=== PATIENT | male | born 1990 | race Caucasian/White ===

== ENCOUNTER 2016-12-13 12:53 | Emergency (ER) | payer MEDICAID, SELFPAY ==
[~2016-12-13] VITALS: Ht 175.3 cm; Wt 101.5 kg
[2016-12-13] MEDS ORDERED: GI COCKTAIL 50ML BTL(HYOSCYAMINE/MAALOX/LIDOCAINE VISCOUS)(1:3:1) PO ONE (13:45)
[2016-12-13] MEDS ORDERED: ASPIRIN 81 MG CHEW TABLET PO ONE (13:45)
[2016-12-13 14:12] LABS: BASO % 0.6 % (0.0-1.0); EOS # 0.7 K/mm3 (0.0-0.50); EOS % 8.1 % (0.0-3.0); LARGE UNSTAINED CELL # 0.1 K/mm3 (0.0-0.4); LARGE UNSTAINED CELL % 1.5 % (0.0-4.0); LYMPH # 1.6 K/mm3 (1.5-6.5); LYMPH % 17.5 % (24.0-44.0); MEAN CORPUSCULAR HEMOGLOBIN 30.2 pg (27.0-33.0); MEAN CORPUSCULAR HGB CONC 33.9 g/dl (32.0-36.5); MEAN CORPUSCULAR VOLUME 88.9 fl (80.0-96.0); MONO # 0.5 K/mm3 (0.0-0.8); MONO % 6.3 % (0.0-5.0); NEUTROPHILS # 5.4 K/mm3 (1.8-7.7); PLATELET COUNT, AUTOMATED 293 k/mm3 (150-450); RED CELL DISTRIBUTION WIDTH 12.2 % (11.5-14.5); WHITE BLOOD COUNT 8.2 K/mm3 (4.0-10.0)
[2016-12-13 14:37] LABS: ANION GAP 8 MEQ/L (8-16); BLOOD UREA NITROGEN 9 MG/DL (7-18); CARBON DIOXIDE LEVEL 26 MEQ/L (21-32); CHLORIDE LEVEL 105 MEQ/L (98-107); CREATININE FOR GFR 0.94 MG/DL (0.70-1.30); GLOMERULAR FILTRATION RATE > 60.0 (>60); GLUCOSE, FASTING 98 MG/DL (70-105); POTASSIUM SERUM 3.8 MEQ/L (3.5-5.1); SODIUM LEVEL 139 MEQ/L (136-145)
--- NOTE | 2016-12-13 14:53 | ECGEPIP ---
Stationary ECG Study [facility] - ED Test Date: 2016-12-13 Pat Name: SUNITHA MARK Department: Room: - Gender: M [employer]ist: skylar : 1990 Requested By: Lisbeth Oneill Order Number: [id number] Reading MD: Armando Eisenberg Measurements Intervals Reading Rate: 79 P: 9 DC: 136 QRS: 63 QRSD: 91 T: 18 QT: 368 QTc: 423 Interpretive Statements SINUS RHYTHM POSSIBLE LEFT ATRIAL ENLARGEMENT INC. RBBB NO PRIORS Electronically Signed On 12-13-2016 14:53:43 EDT by Armando Eisenberg
[2016-12-13] MEDS ORDERED: ISOVUE-370 76% 100ML VIAL (Q9967) As Ordered ONE (15:19)
--- NOTE | 2016-12-13 15:33 | REP ---
Clinical: Chest pain. Technique: PA and lateral. Findings: Right perihilar mass-like density requires further investigation. No effusion. No pneumothorax. Skeletal structures intact. Impression: Large right perihilar opacity. Signed by Sarthak Hong MD 12/13/2016 03:25 P
--- NOTE | 2016-12-13 15:52 | REP ---
Clinical: Chest mass. Technique: Axial contrast enhanced images from the thoracic inlet to the upper abdomen using 100 ml Isovue 370 intravenous contrast material with coronal and sagittal re-formations. Findings: There is anterior mediastinal mass extending to the right paramediastinal region measures 12.2 x 11.7 9.7 cm. There is no evidence for hilar or mediastinal adenopathy. Findings most suggestive of a thymic mass. Mild passive atelectasis involving the adjacent right upper lobe and right middle lobe noted. Remainder of lung [place] are clear. No focal consolidation, nodule or mass lesion. No pleural effusion/reaction. Tracheobronchial tree is patent. The heart and pericardium are relatively normal. Surrounding musculoskeletal structures are intact. Impression: Large mass in the right paramediastinal region appears to extend from the anterior mediastinum. Differential diagnosis includes thymic mass and less likely lymphoma and large bronchogenic cyst. Signed by Sarthak Hong MD 12/13/2016 03:44 P
[2016-12-13 16:01] VITALS: BP 134/77
[2017-02-06] MEDS ORDERED: ONDA8TAB7 PO (16:01)
[2017-02-06] MEDS ORDERED: PROC10TA PO (16:01)
== END 2016-12-13 16:02 | disposition home or self-care (01) ==
LOC: M ED 12:53
DX: R22.2 Localized swelling, mass and lump, trunk (principal)
CPT/HCPCS: 36415; 71020; 71260; 80048; 82550; 82553; 83880; 85025; 93005; 99284; Q9967

== ENCOUNTER → 2016-12-15 | Outpatient (CLI) | payer SELFPAY ==
[~2016-12-15] MED LIST: ONDA8TAB7 PO; PROC10TA PO
== END ==
LOC: M SMT 08:00
PROVIDERS: ATTEND Thoracic Surgery (Cardiothoracic Vascular Surgery)
DX: Z01.812 Encounter for preprocedural laboratory examination (principal); R22.2 Localized swelling, mass and lump, trunk; D38.4 Neoplasm of uncertain behavior of thymus

== ENCOUNTER → 2016-12-15 | Outpatient (CLI) | payer SELFPAY ==
[2016-12-15 11:51] LABS: INR 0.98
--- NOTE | 2016-12-15 12:49 | REP ---
CHEST X-RAY: Single view. HISTORY: Post biopsy chest x-ray. The patient is immediately status post CT guided needle biopsy of right paramediastinal mass. Comparison study is from December 13, 2016. FINDINGS: A large mass in the right paramediastinal distribution persists. There is no evidence of pneumothorax post biopsy. IMPRESSION: No complication identified. Signed by Cricket Riggs MD 12/15/2016 05:14 P
--- NOTE | 2016-12-15 14:02 | REP ---
RIGHT CHEST/LUNG MASS CT GUIDED BIOPSY: The procedure was performed by Kimmy LEACH, under the direct supervision of Dr Riggs. Procedure along with its risks, benefits and complications were discussed with the patient. Informed consent was obtained both verbally and written. The patient was placed on the CT table in the supine position. A right lung lesion was localized under CT guidance. The patient was prepped and draped in the usual sterile fashion. A procedural "time-out" was performed to confirm the correct patient, procedure, and site. 4 mL of 1% Xylocaine were used as local anesthesia. The guide needle was inserted under CT guidance. A 20 gauge Autoquakeno biopsy device was used to obtain five core biopsy specimens. These were placed in Formalin and sent to the lab for further analysis. Post procedure there was no evidence of pneumothorax. The patient was send for post biopsy recovery for an hour. Successful right lung mass biopsy. Reviewed by HAYLEE Akbar 12/15/2016 03:02 PEdited and Signed by Cricket Riggs MD 12/15/2016 04:53 P
== END ==
LOC: M LAB 11:04 → M RADPRO 11:04
PROVIDERS: ATTEND Thoracic Surgery (Cardiothoracic Vascular Surgery)
DX: R91.8 Other nonspecific abnormal finding of lung field (principal)

== ENCOUNTER → 2016-12-23 | Outpatient (CLI) | payer SELFPAY ==
[~2016-12-23] MED LIST changes: +ACETAMINOPHEN 325 MG TAB As Ordered ONE; +LIDOCAINE 1% MDV 20ML VIAL As Ordered ONE
--- NOTE | 2016-12-23 14:15 | REP ---
CHEST, SINGLE VIEW: Single view of the chest is performed status post mediastinal biopsy. There is no pneumothorax. Mediastinal mass is again noted projecting on the right. IMPRESSION: No pneumothorax status post mediastinal mass biopsy. Signed by Lukas Vasquez MD 12/23/2016 05:25 P
--- NOTE | 2016-12-23 21:01 | REP ---
ULTRASOUND GUIDED MEDIASTINAL MASS BIOPSY: The procedure was performed under the direct supervision of Dr. Vasquez. The risks and benefits of the procedure were explained to the patient and informed consent was obtained. The mediastinal mass was localized using ultrasound guidance. The skin was prepped and draped in a sterile fashion. 1% Xylocaine was used as a local anesthetic. Using ultrasound guidance a 14-gauge coaxial needle biopsy system was inserted. 11 core biopsy samples were obtained and sent to the lab. Dr. Thurston was present during the biopsy. The patient tolerated the procedure well and there were no immediate complications. After the appropriate amount of monitored convalescence the patient was discharged from the department. Reviewed by HAYLEE Schreiber 12/26/2016 04:39 PEdited and Signed by Lukas Vasquez MD 12/26/2016 04:41 P
== END ==
LOC: M RADPRO 12:08
PROVIDERS: ATTEND Thoracic Surgery (Cardiothoracic Vascular Surgery)
DX: C81.92 Hodgkin lymphoma, unspecified, intrathoracic lymph nodes (principal)

== ENCOUNTER → 2017-01-03 | Outpatient (CLI) | payer SELFPAY ==
[~2017-01-03] MED LIST changes: -ACETAMINOPHEN 325 MG TAB As Ordered ONE; -LIDOCAINE 1% MDV 20ML VIAL As Ordered ONE
--- NOTE | 2017-01-03 10:27 | PFTRPT ---
Tech: Meggan GALARZA RRT Age: 26 Sex: Male Race: Height: 69.00 Inches Weight: 225.00 Lbs BSA: 2.17 Diagnosis: SOB PULMONARY FUNCTION REPORT ORDERING PROVIDER: NICOLASA Zimmerman DATE OF SERVICE: 01/03/17 SPIROMETRY: Pre and post bronchodilator study of excellent technical quality. The forced vital capacity is reduced. The FEV1 is in proportion. The obstructive index is, therefore, normal. FLOW VOLUME LOOP: The expiratory limb of the flow volume loop does suggest some nonspecific flow rate limitation. LUNG VOLUMES: The total lung capacity is normal. The residual volume is borderline. DIFFUSION CAPACITY: The diffusion capacity is normal. HEMOGLOBIN: No hemoglobin is available for correction. AIRWAY MECHANICS: Airways resistance and conductance are normal. IMPRESSION: Nonspecific flow rate reduction by spirometry values. Please correlate clinically. MTDD
--- NOTE | 2017-01-03 15:06 | ECHO ---
DATE OF STUDY: 01/03/2017 REFERRING PHYSICIAN: NICOLASA Zimmerman INDICATION: Chemotherapy drugs that may affect the heart. HEIGHT: 69 inches. WEIGHT: 225 pounds. 2D MEASUREMENTS: Left atrium: 3.0 cm Aortic root: 3.6 cm Ventricular septum: 1.12 cm Posterior wall: 1.98 cm Left ventricle diastole: 4.6 cm LVOT: 2.6 cm Inferior vena cava: 1.5 cm DOPPLER MEASUREMENTS: Aortic valve velocity: 114 cm/s LVOT velocity: 76.7 cm/s LVOT VTI: 14.1 cm Mitral E velocity: 76.0 cm/s Mitral A velocity: 57.8 cm/s Mitral deceleration time 173 milliseconds. Very mild tricuspid regurgitation. Estimated right ventricle systolic pressure: 22 mmHg assuming a right atrial pressure of 5 mmHg Pulmonary artery systolic pressure: 21 mmHg by pulmonary acceleration time method MITRAL ANNULAR TISSUE DOPPLER: E prime septal: 9.1 cm/s E prime lateral: 13.2 cm/s DESCRIPTION: Rhythm was sinus. Image quality was good. This was a 2D, M-mode, color flow Doppler, and pulse wave Doppler examination and included mitral annular tissue Doppler. No pericardial effusion. CONCLUSIONS: 1. Normal left ventricle internal dimensions and wall thickness. No regional wall motion abnormalities of the left ventricle. Normal left ventricle (LV) systolic function. Left ventricular ejection fraction (LVEF) 60-65% by visual estimate. Normal LV diastolic function. 2. Fluid filled structure of uncertain etiology measuring 6.9 x 7.9 cm adjacent to the free wall of the right atrium which was not causing a significant compression of the left atrium. 3. No vegetations observed. 4. No pericardial effusion. 5. No intracardiac masses. 6. Otherwise normal appearing echocardiogram Doppler.
== END ==
LOC: M CARPUL 09:58
PROVIDERS: ATTEND Nurse Practitioner Family
DX: C85.90 Non-Hodgkin lymphoma, unspecified, unspecified site (principal)

== ENCOUNTER → 2017-01-10 | Outpatient (CLI) | payer OTHER, SELFPAY | LOC: M PLARAD 12:43 | PROVIDERS: ATTEND Nurse Practitioner Family | DX: C85.90 Non-Hodgkin lymphoma, unspecified, unspecified site (principal) ==

== ENCOUNTER → 2017-01-11 | Outpatient (REF) | payer OTHER, SELFPAY | LOC: M LAB REF 16:30 | PROVIDERS: ATTEND Internal Medicine Medical Oncology | DX: C81.90 Hodgkin lymphoma, unspecified, unspecified site (principal) ==

== ENCOUNTER → 2017-01-17 | Outpatient (REF) | payer OTHER, SELFPAY ==
[2017-01-17 15:58] LABS: URIC ACID 6.4 MG/DL (3.5-7.2)
[2017-01-17 21:30] LABS: IMMUNOGLOBULIN G 1310 MG/DL (681-1648); IMMUNOGLOBULIN M 77.5 MG/DL (40-230)
[2017-01-18 11:47] LABS: HEPATITIS B SURFACE ANTIBODY POSITIVE (POSITIVE)
== END ==
LOC: M LAB REF 13:26
PROVIDERS: ATTEND Internal Medicine Medical Oncology
DX: C81.90 Hodgkin lymphoma, unspecified, unspecified site (principal)

== ENCOUNTER → 2017-01-31 | Outpatient (REF) | payer OTHER, SELFPAY ==
[2017-01-31 14:07] LABS: INR 0.97
== END ==
LOC: M LAB REF 13:28
PROVIDERS: ATTEND Internal Medicine Medical Oncology
DX: C81.90 Hodgkin lymphoma, unspecified, unspecified site (principal)

== ENCOUNTER → 2017-04-04 | Outpatient (REF) | payer OTHER, SELFPAY | LOC: M LAB REF 14:36 | PROVIDERS: ATTEND Internal Medicine Medical Oncology | DX: C85.80 Other specified types of non-Hodgkin lymphoma, unspecified site (principal) ==

== ENCOUNTER → 2017-05-10 | Outpatient (REF) | payer OTHER | LOC: M LAB REF 12:25 | PROVIDERS: ATTEND Internal Medicine Medical Oncology | DX: C81.90 Hodgkin lymphoma, unspecified, unspecified site (principal) ==

== ENCOUNTER → 2017-06-08 | Outpatient (REF) | payer OTHER ==
[2017-06-08 14:02] LABS: URIC ACID 7.9 MG/DL (3.5-7.2)
== END ==
LOC: M LAB REF 13:01
DX: C85.90 Non-Hodgkin lymphoma, unspecified, unspecified site (principal)

== ENCOUNTER → 2017-07-06 | Outpatient (REF) | payer OTHER ==
[2017-07-06 14:56] LABS: URIC ACID 7.8 MG/DL (3.5-7.2)
== END ==
LOC: M LAB REF 13:51
DX: C85.90 Non-Hodgkin lymphoma, unspecified, unspecified site (principal)

== ENCOUNTER → 2017-07-13 | Outpatient (CLI) | payer OTHER | LOC: M ONCR 09:03 | DX: C81.90 Hodgkin lymphoma, unspecified, unspecified site (principal) ==

== ENCOUNTER → 2017-07-24 | Outpatient (CLI) | payer OTHER ==
[~2017-07-24] MED LIST changes: +GASTROGRAFIN SOLUTION 30ML (Q9963) As Ordered; +ISOVUE-370 76% 100ML VIAL (Q9967) As Ordered; -ONDA8TAB7 PO; -PROC10TA PO
== END ==
LOC: M RAD 09:13
DX: C81.90 Hodgkin lymphoma, unspecified, unspecified site (principal)
CPT/HCPCS: Q9963

== ENCOUNTER 2017-08-07 16:00 | Outpatient (RCR) | payer OTHER | END 2017-08-09 | LOC: M ONCR 16:00 | DX: C81.12 Nodular sclerosis Hodgkin lymphoma, intrathoracic lymph nodes (principal) | CPT/HCPCS: 77334 ==

== ENCOUNTER → 2017-08-07 | Outpatient (CLI) | payer OTHER | LOC: M RAD 13:33 | DX: C85.90 Non-Hodgkin lymphoma, unspecified, unspecified site (principal) ==

== ENCOUNTER 2017-08-10 14:12 | Outpatient (RCR) | payer OTHER | END 2017-09-09 | LOC: M ONCR 14:12 | DX: C81.12 Nodular sclerosis Hodgkin lymphoma, intrathoracic lymph nodes (principal) | CPT/HCPCS: 77300 ==

== ENCOUNTER → 2017-08-10 | Outpatient (REF) | payer OTHER ==
[2017-08-10 18:48] LABS: URIC ACID 6.2 MG/DL (3.5-7.2)
== END ==
LOC: M LAB REF 17:14
DX: C81.90 Hodgkin lymphoma, unspecified, unspecified site (principal)

== ENCOUNTER 2017-09-11 11:01 | Outpatient (RCR) | payer OTHER | END 2017-10-09 | LOC: M ONCR 11:01 | DX: C81.12 Nodular sclerosis Hodgkin lymphoma, intrathoracic lymph nodes (principal) | CPT/HCPCS: 77336 ==

== ENCOUNTER → 2017-10-25 | Outpatient (CLI) | payer OTHER | LOC: M ONCR 11:23 | DX: C81.12 Nodular sclerosis Hodgkin lymphoma, intrathoracic lymph nodes (principal) ==

== ENCOUNTER → 2017-11-14 | Outpatient (REF) | payer OTHER ==
[2017-11-14 16:27] LABS: THYROID STIMULATING HORMONE 0.681 uIU/ML (0.358-3.740)
[2017-11-14 17:08] LABS: ERYTHROCYTE SEDIMENTATION RATE 7 mm/hr (0-15)
== END ==
LOC: M LAB REF 15:16
DX: C81.90 Hodgkin lymphoma, unspecified, unspecified site (principal)
CPT/HCPCS: 84443

== ENCOUNTER → 2018-02-27 | Outpatient (REF) | payer OTHER | LOC: M LAB REF 13:35 | DX: C81.90 Hodgkin lymphoma, unspecified, unspecified site (principal) ==

== ENCOUNTER → 2018-03-21 | Outpatient (CLI) | payer OTHER ==
[~2018-03-21] MED LIST changes: -GASTROGRAFIN SOLUTION 30ML (Q9963) As Ordered
== END ==
LOC: M RAD 08:57
DX: C81.90 Hodgkin lymphoma, unspecified, unspecified site (principal)
CPT/HCPCS: Q9967

== ENCOUNTER → 2018-06-20 | Outpatient (CLI) | payer OTHER ==
[~2018-06-20] MED LIST changes: -ISOVUE-370 76% 100ML VIAL (Q9967) As Ordered; +ISOVUE-370 76% 100ML VIAL (Q9967) As Ordered ONE; +ONDA8TAB7 PO; +PROC10TA4 PO
--- NOTE | 2018-06-21 05:11 | REP ---
Clinical: Hodgkin's lymphoma. Technique: Axial contrast enhanced images from the thoracic inlet to the upper abdomen with coronal and sagittal re-formations using 100 ml Isovue 370 intravenous contrast material. Comparison: 03/21/2018, 07/24/2017 . Findings: The lung [place] demonstrate postradiation type changes along the right paramediastinal upper lung zone extending into the posterior medial right lower lobe and previously noted associated areas of consolidation with air bronchograms have considerably improved. Remainder of the bilateral lung [place] are well-aerated and clear without further significant consolidation, obvious nodule or mass lesion. No pleural effusion. No pneumothorax. Tracheobronchial tree is patent. Anterior right mediastinal soft tissue likely representing conglomerate lymph node currently measures approximately 3.2 x 2.0 cm maximal diameter and decreased from prior examination (previously measuring 3.9 x 2.4 cm). No further mediastinal, hilar or axillary adenopathy/mass lesion identified. Thoracic aorta, pulmonary vasculature and heart/pericardium appear normal. Surrounding musculoskeletal structures are intact. Wsrcqm-[id number]-Apgp within the left anterior chest wall extends into the SVC. Impression: 1. Postradiation type changes along the medial right hemithorax with decreased associated consolidation as compared to prior examination. 2. Conglomerate lymph node/mass in the right anterior mediastinum mildly decreased from prior examination. 3. No further adenopathy/mass or new acute abnormality appreciated. Electronically Signed by Sarthak Hong MD 06/21/2018 05:02 A
== END ==
LOC: M RAD 12:40
PROVIDERS: ATTEND Internal Medicine Medical Oncology
DX: C81.12 Nodular sclerosis Hodgkin lymphoma, intrathoracic lymph nodes (principal)
CPT/HCPCS: 71260; Q9967

== ENCOUNTER → 2018-12-19 | Outpatient (CLI) | payer OTHER ==
--- NOTE | 2018-12-19 23:07 | REP ---
Clinical: The osseous lymphoma. Technique: Axial contrast enhanced images from the thoracic inlet to the upper abdomen with coronal and sagittal re-formations using 100 ml Isovue 370 intravenous contrast material. Comparison: 06/20/2018. Findings: Stable post radiation type changes are appreciated along the medial aspect of the right lung. The conglomerate lymph nodes in the anterior right mediastinum are slightly decreased from prior examination. Remainder of lung [place] are well-aerated and essentially clear. No further consolidation, obvious nodule or mass lesion. No pleural effusion. No pneumothorax. Tracheobronchial tree is patent. No significant new adenopathy is appreciated. The mediastinum demonstrates normal thoracic aorta and heart/pericardium. Osseous structures are intact and normal. Cqkpyq-H-Xksl identified with tip in the SVC. Impression: Stable post radiation type changes to the right lung. Lymph nodes along the right anterior mediastinum appears mildly decreased in size from prior examination. No acute mediastinal or pleuroparenchymal process appreciated. Electronically Signed by Sarthak Hong MD 12/19/2018 10:59 P
== END ==
LOC: M RAD 10:57
PROVIDERS: ATTEND Internal Medicine Medical Oncology
DX: Z08 Encounter for follow-up examination after completed treatment for malignant neoplasm (principal); C81.90 Hodgkin lymphoma, unspecified, unspecified site
CPT/HCPCS: 71260; Q9967

== ENCOUNTER → 2019-01-07 | Outpatient (CLI) | payer OTHER ==
[~2019-01-07] MED LIST changes: -ISOVUE-370 76% 100ML VIAL (Q9967) As Ordered ONE
--- NOTE | 2019-01-07 11:32 | REP ---
Clinical: History of lymphoma. Technique: PA and lateral. Comparison: 02/10/2017. Findings: Fjstym-P-Umin identified with tip in the SVC. Cardiac silhouette appears normal. Subtle ill-defined opacity in the right perihilar region cannot be excluded. No effusion. No pneumothorax. No further area of pulmonary parenchymal opacity. Skeletal structures are intact. Impression: Ill-defined area of opacity in the right perihilar region. Follow-up to resolution is recommended. Differential diagnosis may include infiltrate/pneumonia and adenopathy. Electronically Signed by Sarthak Hong MD 01/07/2019 11:24 A
== END ==
LOC: M SMT 11:09
PROVIDERS: ATTEND Thoracic Surgery (Cardiothoracic Vascular Surgery)
DX: Z01.818 Encounter for other preprocedural examination (principal)

== ENCOUNTER 2019-01-11 09:31 | Day surgery (SDC) | payer OTHER ==
[~2019-01-11] VITALS: Ht 175.3 cm; Wt 115.6 kg
[~2019-01-11 09:31] MED LIST changes: +BUPIVACAINE LIPOSOME/PF 1.3% 20ML VIAL (13.3MG/ML)(EXPAREL)(C9290 PER1MG) As Ordered ONE; +LIDOCAINE 1% MDV 20ML VIAL SQ PRN; +LR 1,000 ML IV ONE; +MUPIROCIN 2% OINT 22 GM TUBE TOP ONE; +PROPOFOL 200 MG/20 ML VIAL As Ordered ONE
[2019-01-11] MEDS ORDERED: PROPOFOL 200 MG/20 ML VIAL As Ordered ONE (10:38)
[2019-01-11] MEDS ORDERED: MIDAZOLAM INJ 2 MG/2 ML VIAL (J2250) As Ordered ONE (10:39)
[2019-01-11] MEDS ORDERED: ONDANSETRON 4MG/2ML VIAL (J2405) As Ordered ONE (10:39)
[2019-01-11] MEDS ORDERED: dexameTHASONE 4 MG/ML 1ML VIAL (J1100) As Ordered ONE (10:39)
[2019-01-11] MEDS ORDERED: LIDOCAINE 2% INJ 100 MG/5 ML SDV (FOR ANES.) As Ordered ONE (10:39)
[2019-01-11] MEDS ORDERED: fentaNYL 100 MCG/2 ML INJECTION (J3010) As Ordered ONE (11:27)
--- NOTE | 2019-01-11 12:53 | REP ---
Clinical: Oemiui-Q-Jzeq removal. Comparison: 01/07/2019. Findings: Mediastinum and cardiac silhouette are stable. Perihilar opacities are unchanged. Ndywqp-Q-Yhcl has been removed. No effusion. No pneumothorax. Skeletal structures intact. Impression: Stable perihilar opacities. Electronically Signed by Sarthak Hong MD 01/11/2019 12:45 P
[2019-01-11 13:00] VITALS: BP 132/68
--- NOTE | 2019-01-11 13:59 | RO ---
DATE OF PROCEDURE: 01/11/2019 PREPROCEDURE DIAGNOSIS: Lymphoma with completion of therapy with retained Infusaport. POSTPROCEDURE DIAGNOSIS: Lymphoma with completion of therapy with retained Infusaport. PROCEDURE: Removal of left Infusaport. SURGEON: Dr. Antwan Thurston. JIG MAKER: ANESTHESIA: Monitored anesthesia care (MAC). DESCRIPTION OF PROCEDURE: Under satisfactory MAC anesthesia, the patient was prepped and draped in the usual sterile fashion. Exparel was injected into the wound site and an incision was made. It was carried down through subcutaneous tissue and the port was exposed. The stent was found by electrocautery and the catheter seized in a clamp. The catheter was then delivered into the field intact. The Infusaport was then removed by sharp dissection and the suture was removed. Glistening capsule was then removed with the electrocautery. After achieving adequate hemostasis, the incision was closed with a running #3-0 Vicryl with subcutaneous suture and running #4-0 Monocryl subcuticular suture. Patient tolerated the procedure well and left the operating room in satisfactory condition for the recovery room.
== END 2019-01-11 13:11 | disposition home or self-care (01) ==
LOC: M SDC 09:31
PROVIDERS: ATTEND Thoracic Surgery (Cardiothoracic Vascular Surgery)
DX: Z45.2 Encounter for adjustment and management of vascular access device (principal); C81.90 Hodgkin lymphoma, unspecified, unspecified site; Z92.21 Personal history of antineoplastic chemotherapy; Z92.3 Personal history of irradiation
CPT/HCPCS: 36590; 71045; C9290; J0690; J1100; J2250; J2405; J3010

== ENCOUNTER → 2019-01-17 | Outpatient (CLI) | payer OTHER ==
[~2019-01-17] MED LIST changes: -BUPIVACAINE LIPOSOME/PF 1.3% 20ML VIAL (13.3MG/ML)(EXPAREL)(C9290 PER1MG) As Ordered ONE; -LIDOCAINE 1% MDV 20ML VIAL SQ PRN; -LR 1,000 ML IV ONE; -MUPIROCIN 2% OINT 22 GM TUBE TOP ONE; +ONDA8TAB10 PO; -ONDA8TAB7 PO; -PROPOFOL 200 MG/20 ML VIAL As Ordered ONE
--- NOTE | 2019-01-18 02:03 | REP ---
Clinical: Preoperative assessment . Comparison: 01/07/2019 . Technique: PA and lateral. Findings: The mediastinum and cardiac silhouette are stable with right hilar opacity again noted and unchanged. No further consolidation. No effusion. No pneumothorax. Previous Aacdff-W-Nxjv has been removed. The skeletal structures are intact and normal. Impression: Right perihilar opacity unchanged. Electronically Signed by Sarthak Hong MD 01/18/2019 01:54 A
== END ==
LOC: M SMT 08:18
PROVIDERS: ATTEND Thoracic Surgery (Cardiothoracic Vascular Surgery)
DX: Z01.818 Encounter for other preprocedural examination (principal)

== ENCOUNTER → 2019-05-20 | Outpatient (REF) | payer OTHER ==
[~2019-05-20] MED LIST changes: -ONDA8TAB10 PO; +ONDA8TAB7 PO
[2019-05-20 12:31] LABS: ALBUMIN 3.9 GM/DL (3.2-5.2); ALT/SGPT 29 U/L (12-78); BILIRUBIN,TOTAL 1.5 MG/DL (0.2-1.0); BLOOD UREA NITROGEN 10 MG/DL (7-18); CALCIUM LEVEL 8.9 MG/DL (8.5-10.1); CARBON DIOXIDE LEVEL 25 MEQ/L (21-32); CHLORIDE LEVEL 107 MEQ/L (98-107); CHOLESTEROL LEVEL 145 MG/DL (<200); CHOLESTEROL RISK RATIO 3.815 (<5); CREATININE FOR GFR 0.98 MG/DL (0.70-1.30); GLOMERULAR FILTRATION RATE > 60.0 (>60); GLUCOSE, FASTING 96 MG/DL (70-100); HDL CHOLESTEROL 38 MG/DL (>40); LDL CHOLESTEROL 88 MG/DL (<100); NON-HDL-C 107 MG/DL; POTASSIUM SERUM 4.2 MEQ/L (3.5-5.1); SODIUM LEVEL 139 MEQ/L (136-145); THYROID STIMULATING HORMONE 0.683 uIU/ML (0.358-3.740); TOTAL PROTEIN 7.1 GM/DL (6.4-8.2); TRIGLYCERIDES LEVEL 96 MG/DL (<150)
[2019-05-20 13:22] LABS: TOTAL 25(OH) VITAMIN D 19.9 NG/ML (30.0-100.0)
== END ==
LOC: M SFHCPLAZ 10:21
PROVIDERS: ATTEND Nurse Practitioner Family
DX: Z13.220 Encounter for screening for lipoid disorders (principal); E66.9 Obesity, unspecified

== ENCOUNTER 2020-03-18 22:29 | Emergency (ER) | payer OTHER ==
[~2020-03-18] VITALS: Ht 175.3 cm; Wt 121.4 kg
[2020-03-18 23:27] LABS: BASO # 0.1 10^3/uL (0.0-0.2); BASO % 0.7 % (0.0-1.0); EOS # 0.1 10^3/uL (0.0-0.5); EOS % 1.2 % (0.0-3.0); HEMOGLOBIN 15.4 g/dl (13.5-17.5); LYMPH # 1.9 10^3/uL (1.5-5.0); LYMPH % 21.9 % (24.0-44.0); MEAN CORPUSCULAR VOLUME 85.8 fl (80.0-96.0); MONO # 0.6 10^3/uL (0.0-0.8); MONO % 6.6 % (0.0-5.0); NEUTROPHILS # 6.1 10^3/uL (1.5-8.5); NEUTROPHILS % 69.4 % (36.0-66.0); PLATELET COUNT, AUTOMATED 286 10^3/uL (150-450); RED BLOOD COUNT 5.13 10^6/uL (4.30-6.10); WHITE BLOOD COUNT 8.8 10^3/uL (4.0-10.0)
--- NOTE | 2020-03-18 23:57 | REPVR ---
PROCEDURE INFORMATION: Exam: XR Chest, 2 Views Exam date and time: 03/18/2020 11:13 PM Age: 29 years old Clinical indication: Other: Left chest pain TECHNIQUE: Imaging protocol: XR of the chest Views: 2 views. COMPARISON: CR CHEST 2 VIEWS 01/17/2019 8:28 AM FINDINGS: Lungs: Unremarkable. No consolidation. Pleural space: Unremarkable. No pleural effusion. No pneumothorax. Heart/Mediastinum: Unremarkable. No cardiomegaly. Bones/joints: Unremarkable. IMPRESSION: No acute infiltrates. Electronically signed by: Kyara Hardy On 03/18/2020 23:57:09 PM
[2020-03-19 00:30] VITALS: BP 134/67
== END 2020-03-19 00:33 | disposition home or self-care (01) ==
LOC: M ED 22:29
DX: R07.89 Other chest pain (principal); E66.9 Obesity, unspecified; C81.12 Nodular sclerosis Hodgkin lymphoma, intrathoracic lymph nodes

== ENCOUNTER → 2020-03-18 | Outpatient (REF) | payer OTHER ==
[~2020-03-18] MED LIST changes: +ONDA8TAB10 PO; -ONDA8TAB7 PO
[2020-03-18 13:29] LABS: URIC ACID 7.5 MG/DL (3.5-7.2)
[2020-03-18 13:35] LABS: TOTAL 25(OH) VITAMIN D 33.6 NG/ML (30.0-100.0)
== END ==
LOC: M SFHCPLAZ 09:27
PROVIDERS: ATTEND Nurse Practitioner Family
DX: E55.9 Vitamin D deficiency, unspecified (principal); M79.675 Pain in left toe(s)

== ENCOUNTER → 2020-09-16 | Outpatient (REF) | payer OTHER ==
[2020-09-16 10:47] LABS: BLOOD UREA NITROGEN 12 MG/DL (7-18); CALCIUM LEVEL 9.3 MG/DL (8.5-10.1); CARBON DIOXIDE LEVEL 26 MEQ/L (21-32); CHLORIDE LEVEL 105 MEQ/L (98-107); CREATININE FOR GFR 0.92 MG/DL (0.70-1.30); GLOMERULAR FILTRATION RATE > 60.0 (>60); GLUCOSE, FASTING 88 MG/DL (70-100); POTASSIUM SERUM 4.3 MEQ/L (3.5-5.1); SODIUM LEVEL 139 MEQ/L (136-145); URIC ACID 8.4 MG/DL (3.5-7.2)
[2020-09-16 12:02] LABS: TOTAL 25(OH) VITAMIN D 24.2 NG/ML (30.0-100.0)
== END ==
LOC: M SFHCPLAZ 09:15
PROVIDERS: ATTEND Nurse Practitioner Family
DX: M10.072 Idiopathic gout, left ankle and foot (principal); E55.9 Vitamin D deficiency, unspecified

== ENCOUNTER → 2020-12-21 | Outpatient (CLI) | payer OTHER ==
[~2020-12-21] MED LIST changes: +GASTROGRAFIN SOLUTION 30ML (Q9963) ONE; +ISOVUE-370 76% 100ML VIAL ONE
--- NOTE | 2020-12-21 15:03 | REP ---
INDICATION: HODGKINS LYMPHOMA W/ CHEST PAIN COMPARISON: Multiple all reviewed TECHNIQUE: Standard helical technique after the intravenous administration of 100 cc Isovue 370 and oral bowel preparatory contrast administration. FINDINGS: There is no mediastinal or hilar adenopathy. Calcifications are now seen in a previously noted enlarged right paramediastinal lymph node. There are no pleural or pericardial effusions. Evaluation of the lung [place] shows stable post radiation change in the right upper lower lobes paramediastinal region. There is significant respiratory motion artifact obscuring lung detail. No new abnormal nodules, masses, or opacities seem to have developed. The liver, gallbladder, spleen, pancreas, adrenal glands, and kidneys are again seen to be within normal limits. The abdominal aorta and para-aortic regions are within normal limits. There is no adenopathy. There is no free fluid or free air. The bowel loops and the mesenteries are within normal limits. Bone window technique throughout the exam shows the osseous structures to be stable and intact. IMPRESSION: No acute disease. Findings as described above. <Electronically signed by Steven Talley > 12/21/20 [id number]
== END ==
LOC: M PLAIMG 12:57
PROVIDERS: ATTEND Internal Medicine Medical Oncology
DX: C81.12 Nodular sclerosis Hodgkin lymphoma, intrathoracic lymph nodes (principal); R07.9 Chest pain, unspecified
CPT/HCPCS: 71260; 74177; Q9963; Q9967

== ENCOUNTER → 2021-01-19 | Outpatient (CLI) | payer OTHER ==
[~2021-01-19] MED LIST changes: -GASTROGRAFIN SOLUTION 30ML (Q9963) ONE; -ISOVUE-370 76% 100ML VIAL ONE
--- NOTE | 2021-01-19 20:35 | ECHO ---
ECHOCARDIOGRAM DATE OF PROCEDURE: 01/19/2021 Age: 30 Gender: Male Height: 175 cm Weight: 123 kg REFERRING PHYSICIAN: Dr. Floresita Angeles INDICATION: Hodgkin's lymphoma, chest pain MEASUREMENTS: IVS 1.1 cm LV 4.8 cm LVPW 1.0 cm LA 3.0 cm Aorta 4.2 cm Mitral E velocity 68 A wave 45 E prime septal 8.7 E prime lateral 12.4 Left atrium volume index 26 mL/m2 FINDINGS: This study is of fair technical quality with difficult visualization, consistent with patient's body habitus, underlying sinus rhythm Normal LV size with preserved LV systolic function. Estimated LVEF 60 to 65%. Right ventricle appears mildly dilated, but normally contractile. Both atria appear grossly normal. Aortic, mitral and tricuspid valves appear normal. Pulmonic valve was not well seen. No pericardial effusion is noted. Inferior vena cava was not visualized. Aortic root is mildly dilated at 4.2 cm. Aortic arch appears normal. Abdominal aorta was not seen. Doppler interrogation reveals competent aortic valve. There is trace mitral insufficiency and no tricuspid insufficiency. Mitral inflow pattern and tissue Doppler imaging of mitral annulus revealed preserved left ventricular diastolic function. CONCLUSIONS: 1. Study is of fair technical quality. Underlying sinus rhythm. 2. Normal LV size with preserved LV systolic and diastolic function. 3. Right ventricle appears mildly dilated. 4. No significant valvular disease. 5. Unable to estimate central venous pressure and pulmonary artery pressure. 6. Mildly dilated aortic root. COMMENT: One-year follow-up study is recommended because of aortic root dilatation.
== END ==
LOC: M CARPUL 09:54
PROVIDERS: ATTEND Internal Medicine Medical Oncology
DX: C81.90 Hodgkin lymphoma, unspecified, unspecified site (principal); R07.9 Chest pain, unspecified

== ENCOUNTER → 2021-10-13 | Outpatient (CLI) | payer OTHER ==
[~2021-10-13] MED LIST changes: +ONDA-84 PO; -ONDA8TAB10 PO; -PROC10TA4 PO; +PROC10TA5 PO
[2021-10-13 13:33] LABS: BASO # 0.1 10^3/uL (0.0-0.2); BASO % 0.8 % (0.0-1.0); EOS # 0.2 10^3/uL (0.0-0.5); EOS % 3.6 % (0.0-3.0); HEMATOCRIT 46.7 % (42.0-52.0); HEMOGLOBIN 16.3 g/dl (13.5-17.5); LYMPH # 1.6 10^3/uL (1.5-5.0); LYMPH % 24.1 % (24.0-44.0); MEAN CORPUSCULAR HEMOGLOBIN 30.6 pg (27.0-33.0); MEAN CORPUSCULAR HGB CONC 34.9 g/dl (32.0-36.5); MEAN CORPUSCULAR VOLUME 87.6 fl (80.0-96.0); MONO # 0.5 10^3/uL (0.0-0.8); MONO % 7.7 % (2.0-8.0); NEUTROPHILS # 4.2 10^3/uL (1.5-8.5); NEUTROPHILS % 63.6 % (36.0-66.0); PLATELET COUNT, AUTOMATED 313 10^3/uL (150-450); RED BLOOD COUNT 5.33 10^6/uL (4.30-6.10); WHITE BLOOD COUNT 6.6 10^3/uL (4.0-10.0)
[2021-10-13 17:18] LABS: ALBUMIN 4.1 GM/DL (3.2-5.2); ALT/SGPT 27 U/L (12-78); BLOOD UREA NITROGEN 13 MG/DL (7-18); CALCIUM LEVEL 10.1 MG/DL (8.5-10.1); CARBON DIOXIDE LEVEL 26 MEQ/L (21-32); CHLORIDE LEVEL 106 MEQ/L (98-107); CHOLESTEROL LEVEL 161 MG/DL (<200); CHOLESTEROL RISK RATIO 4.025 (<5); CREATININE FOR GFR 0.79 MG/DL (0.70-1.30); GLOMERULAR FILTRATION RATE > 60.0 (>60); GLUCOSE, FASTING 98 MG/DL (70-100); HDL CHOLESTEROL 40 MG/DL (>40); LDL CHOLESTEROL 104 MG/DL (<100); NON-HDL-C 121 MG/DL; POTASSIUM SERUM 4.7 MEQ/L (3.5-5.1); SODIUM LEVEL 139 MEQ/L (136-145); TOTAL 25(OH) VITAMIN D 20.4 NG/ML (30.0-100.0); TOTAL PROTEIN 7.3 GM/DL (6.4-8.2); TRIGLYCERIDES LEVEL 86 MG/DL (<150)
== END ==
LOC: M PLALAB 09:37
PROVIDERS: ATTEND Nurse Practitioner Family
DX: E55.9 Vitamin D deficiency, unspecified (principal); E66.9 Obesity, unspecified; C81.12 Nodular sclerosis Hodgkin lymphoma, intrathoracic lymph nodes; M10.9 Gout, unspecified; Z13.220 Encounter for screening for lipoid disorders

== ENCOUNTER → 2021-11-30 | Outpatient (CLI) | payer OTHER ==
[~2021-11-30] MED LIST changes: +NAPR-885
== END ==
LOC: M CARPUL 13:35
PROVIDERS: ATTEND Internal Medicine Medical Oncology
DX: C81.90 Hodgkin lymphoma, unspecified, unspecified site (principal); R07.9 Chest pain, unspecified; I77.819 Aortic ectasia, unspecified site

== ENCOUNTER → 2021-12-02 | Outpatient (CLI) | payer OTHER ==
[~2021-12-02] MED LIST changes: +ISOVUE-370 76% 100ML VIAL As Ordered ONE
== END ==
LOC: M RAD 11:00
PROVIDERS: ATTEND Internal Medicine Medical Oncology
DX: R07.9 Chest pain, unspecified (principal); C81.90 Hodgkin lymphoma, unspecified, unspecified site
CPT/HCPCS: 71260; Q9967

== ENCOUNTER → 2023-02-08 | Outpatient (CLI) | payer OTHER | LOC: M RAD 12:32 | PROVIDERS: ATTEND Internal Medicine Hematology & Oncology | DX: Z12.2 Encounter for screening for malignant neoplasm of respiratory organs (principal); F17.210 Nicotine dependence, cigarettes, uncomplicated; C81.90 Hodgkin lymphoma, unspecified, unspecified site | CPT/HCPCS: 71260; Q9967 ==

== ENCOUNTER → 2023-02-09 | Outpatient (CLI) | payer OTHER ==
[~2023-02-09] MED LIST changes: -ISOVUE-370 76% 100ML VIAL As Ordered ONE
== END ==
LOC: M CARPUL 14:06
PROVIDERS: ATTEND Internal Medicine Hematology & Oncology
DX: I42.7 Cardiomyopathy due to drug and external agent (principal); I35.1 Nonrheumatic aortic (valve) insufficiency